=== PATIENT | female | born 1955 | race Caucasian/White ===

== ENCOUNTER → 2021-07-30 11:11 | Outpatient (BNVA) | payer MEDICARE, SELFPAY | PROVIDERS: PCP Family Medicine; Visit Provider Specialist | DX: R25.1 Tremor, unspecified (principal) | CPT/HCPCS: 96116; 99203; 99205 ==

== ENCOUNTER 2024-02-23 08:45 | Outpatient (CLI) | payer MEDICARE, SELFPAY ==
--- NOTE | 2024-02-23 08:55 | MM_ITS ---
WS: [id number] DIAGNOSTIC BILATERAL DIGITAL BREAST TOMOSYNTHESIS MAMMOGRAPHY WITH CAD LEFT breast ultrasound, limited HISTORY: L BREAST PAIN COMPARISON: 12/19/2022, 07/24/2021 TECHNIQUE: Bilateral craniocaudad, mediolateral oblique, and mediolateral views are submitted with to mosynthesis and SM. Computer aided detection utilized. Breast composition: There are scattered areas of fibroglandular density. No suspicious masses or calc ifications. No skin thickening. Benign calcifications in the RIGHT breast. LEFT breast ultrasound, limited. Ultrasound is directed throughout the LEFT breast in the area of pain. No abnormalities are identifie d. There is no shadowing or mass. No solid mass or cystic collection. MM/[id number] IMPRESSION: BI-RADS: 2-Benign FOLLOW UP: 1 Year Follow-up No abnormality noted in the LEFT breast in the area of pain.
== END 2024-02-23 08:46 | disposition home or self-care (01) ==
LOC: RAD 08:45
PROVIDERS: PCP Family Medicine; Visit Provider Family Medicine
DX: N64.4 Mastodynia (principal); Z12.31 Encounter for screening mammogram for malignant neoplasm of breast; R92.323 Mammographic fibroglandular density, bilateral breasts; R92.1 Mammographic calcification found on diagnostic imaging of breast
CPT/HCPCS: 76642; 77062; G0279

== ENCOUNTER → 2025-09-06 09:32 | Outpatient (BNVA) | payer MEDICARE, SELFPAY | PROVIDERS: PCP Family Medicine; Visit Provider Student in an Organized Health Care Education/Training Program | DX: M70.61 Trochanteric bursitis, right hip (principal); M25.551 Pain in right hip | CPT/HCPCS: 20610; 73502; 99204; J3301; J3490; J9999 ==